=== PATIENT | female | born 1980 | race Caucasian/White ===

== ENCOUNTER 2016-04-20 22:40 | Emergency (ER) | payer MEDICAID, OTHER ==
[~2016-04-20] VITALS: Ht 172.7 cm; Wt 60.8 kg
[2016-04-20] MEDS ORDERED: IV NS 0.9% 1,000 ML BAG IV ONE (23:00)
[2016-04-20] MEDS ORDERED: IV SET PRIMARY 1 EA INFUS.SET MC ONE (23:03)
[2016-04-20] MEDS ORDERED: IV NS 0.9% 1,000 ML ONE (23:03)
[2016-04-20 23:08] LABS: BASOPHILS # (AUTO) 0.1 /CMM (0.0-0.2); BASOPHILS % (AUTO) 0.6 % (0.0-2.0); DIFF TOTAL % 100 %; EOSINOPHILS # (AUTO) 0.3 /CMM (0.0-0.7); EOSINOPHILS % (AUTO) 2.3 % (0.0-6.0); HEMATOCRIT 38 % (33-45); HEMOGLOBIN 13.1 g/dL (11.5-14.8); LYMPHOCYTES # (AUTO) 2.9 /CMM (0.8-4.8); LYMPHOCYTES % (AUTO) 19.6 % (20.0-44.0); MEAN CORPUSCULAR HEMOGLOBIN 31 PG (26.0-33.0); MEAN CORPUSCULAR HGB CONC 34 g/dl (31.0-36.0); MEAN CORPUSCULAR VOLUME 90 fL (82-100); MONOCYTES # (AUTO) 0.7 /CMM (0.1-1.30); MONOCYTES % (AUTO) 4.4 % (2.0-12.0); NEUTROPHILS % (AUTO) 73.1 % (43.0-81.0); PLATELET COUNT (AUTO) 295 /CMM (150-450); RED BLOOD CELL COUNT(AUTO) 4.24 MIL/uL (4.0-5.2)
[2016-04-20 23:11] LABS: ADD UA MICROSCOPIC NO; KETONES,URINE NEGATIVE (NEGATIVE); LEUKOCYTE ESTERASE ,URINE NEGATIVE (NEGATIVE); PH,URINE 6.5 (5.0-8.0)
[2016-04-20 23:15] LABS: CALCIUM, SERUM 8.6 mg/dL (8.5-10.1); CREATININE 0.6 mg/dL (0.6-1.3); POTASSIUM 3.1 mmol/L (3.5-5.1)
[2016-04-20 23:23] LABS: ALBUMIN 3.8 g/dL (3.4-5.0); BILIRUBIN,DIRECT 0.1 mg/dL (0.0-0.2); BILIRUBIN,TOTAL 0.2 mg/dL (0.2-1.0); INDIRECT BILIRUBIN 0.1 mg/dL (0.0-1.1); TOTAL PROTEIN, SERUM 7.6 g/dL (6.4-8.2)
[2016-04-20] MEDS ORDERED: POTASSIUM CHLORIDE 20 MEQ TAB.PRT.SR PO ONE ×2 (23:30)
[2016-04-21 01:11] VITALS: BP 136/75
== END 2016-04-21 01:12 | disposition home or self-care (01) ==
LOC: ER 22:44
DX: O26.892 Other specified pregnancy related conditions, second trimester (principal); R10.2 Pelvic and perineal pain; F17.200 Nicotine dependence, unspecified, uncomplicated; Z3A.15 15 weeks gestation of pregnancy
CPT/HCPCS: 36415 ×2; 76805; 80048; 80076; 81001; 84702; 85025; 96360; 99285; A4606; J7030; Z7610; 81000-TC

== ENCOUNTER 2016-11-30 00:21 | Emergency (ER) | payer MEDICAID ==
--- NOTE | 2016-11-30 00:42 | NUR ---
PT TOLD THERE WILL BE A WAIT AND PT DECIDED TO LEAVE, PT WEALKED OUT OF THE ER WITH A STEADY GAIT.
== END 2016-11-30 00:42 | disposition left against medical advice (07) ==
LOC: ER 00:35
DX: Z53.21 Procedure and treatment not carried out due to patient leaving prior to being seen by health care provider (principal)

== ENCOUNTER 2018-05-10 18:49 | Emergency (ER) | payer MEDICAID ==
[~2018-05-10] VITALS: Ht 172.7 cm; Wt 61.7 kg
--- NOTE | 2018-05-10 19:00 | NUR ---
BIB SELF W C/O SEVERE LOWER BACK PAIN x 2 DAYS. TO ER BED 12, HOOKED TO MONITOR, AWAITING MD PANDEY
--- NOTE | 2018-05-10 19:01 | NUR ---
[facility]ICKSON MEMBRENO AT BEDSIDE
[2018-05-10 19:22] LABS: APPEARANCE,URINE Clear (CLEAR); BILIRUBIN,URINE Negative (NEGATIVE); BLOOD, URINE Trace-intact Ery/uL (NEGATIVE); COLOR,URINE Yellow (YELLOW); KETONES,URINE Negative (NEGATIVE); LEUKOCYTE ESTERASE ,URINE Trace (NEGATIVE); NITRITE, URINE Negative (NEGATIVE); PH,URINE 6.5 (5.0-8.0); PROTEIN,URINE Negative (NEGATIVE); UGLUCOSE Negative (NEGATIVE); UROBILINOGEN,URINE 0.2 EU/dL (0.2)
[2018-05-10 19:23] LABS: BACTERIA,URINE None seen /HPF (None Seen); RBC,URINE 0-2 /HPF (0-2); SQUAMOUS EPITHELIAL CELL,UR Few /HPF (None Seen); WBC,URINE 0-2 /HPF (0-3)
--- NOTE | 2018-05-10 19:36 | NUR ---
REC'D ENDORSEMENT FROM MARIA LUZ VERDUGO FOR NATHALIE
--- NOTE | 2018-05-10 19:37 | NUR ---
REPORT GIVEN TO ANGIE RN FOR NATHALIE
--- NOTE | 2018-05-10 20:25 | NUR ---
Patient discharged to home in stable condition. Written and verbal after care instructions given. Patient verbalizes understanding of instruction.
[2018-05-10] MEDS ORDERED: ACETAMINOPHEN 325 MG TABLET PO ONE (20:30)
[2018-05-10] MEDS ORDERED: ACETAMINOPHEN 325 MG TABLET ONE (20:32)
[2018-05-10 20:42] VITALS: BP 122/79
== END 2018-05-10 20:25 | disposition home or self-care (01) ==
LOC: ER 18:49
DX: M54.5 Low back pain (principal); A53.9 Syphilis, unspecified; R35.0 Frequency of micturition; F17.200 Nicotine dependence, unspecified, uncomplicated; Z87.440 Personal history of urinary (tract) infections
CPT/HCPCS: 81000-TC; 84703-TC

== ENCOUNTER 2018-11-04 20:06 | Emergency (ER) | payer MEDICAID ==
[~2018-11-04] VITALS: Ht 172.7 cm; Wt 60.8 kg
[2018-11-04 20:14] VITALS: BP 138/86
[2018-11-04 21:05] LABS: APPEARANCE,URINE Clear (CLEAR); BILIRUBIN,URINE Negative (NEGATIVE); BLOOD, URINE Negative Ery/uL (NEGATIVE); COLOR,URINE Yellow (YELLOW); KETONES,URINE Negative (NEGATIVE); LEUKOCYTE ESTERASE ,URINE Negative (NEGATIVE); NITRITE, URINE Negative (NEGATIVE); PH,URINE 6.5 (5.0-8.0); PROTEIN,URINE Negative (NEGATIVE); UGLUCOSE Negative (NEGATIVE); UROBILINOGEN,URINE 0.2 EU/dL (0.2)
== END 2018-11-04 22:15 | disposition home or self-care (01) ==
LOC: ER 20:11
DX: S70.361A Insect bite (nonvenomous), right thigh, initial encounter (principal); J02.8 Acute pharyngitis due to other specified organisms; B97.89 Other viral agents as the cause of diseases classified elsewhere; F17.200 Nicotine dependence, unspecified, uncomplicated; Z98.890 Other specified postprocedural states; W57.XXXA Bitten or stung by nonvenomous insect and other nonvenomous arthropods, initial encounter; Y93.89 Activity, other specified; Y92.89 Other specified places as the place of occurrence of the external cause; Y99.8 Other external cause status
CPT/HCPCS: 81000-TC; 84703-TC

== ENCOUNTER 2019-08-05 18:53 | Emergency (ER) | payer MEDICAID ==
[~2019-08-05] VITALS: Ht 172.7 cm; Wt 57.6 kg
--- NOTE | 2019-08-05 19:10 | NUR ---
PT CAME TO THE ED C/O VAGINAL BLEEDING X 15 DAYS. PT DENIES ANY CLOTS. PT AAOX4, VSS, RESPIRATIONS EVEN AND UNLABORED ON RA W NAD NOTED. PT CONNECTED TO THE RENDERER AND POX. WILL CONTINUE TO MONITOR FOR SAFETY
--- NOTE | 2019-08-05 19:15 | NUR ---
URINE COLLECTED AND SENT TO LAB
--- NOTE | 2019-08-05 19:30 | NUR ---
US AT BEDSIDE
[2019-08-05 19:37] LABS: APPEARANCE,URINE Clear (CLEAR); BILIRUBIN,URINE Negative (NEGATIVE); BLOOD, URINE Large Ery/uL (NEGATIVE); COLOR,URINE Yellow (YELLOW); KETONES,URINE Negative (NEGATIVE); LEUKOCYTE ESTERASE ,URINE Small (NEGATIVE); NITRITE, URINE Negative (NEGATIVE); PROTEIN,URINE Negative (NEGATIVE); UGLUCOSE Negative (NEGATIVE); UROBILINOGEN,URINE 0.2 EU/dL (0.2)
[2019-08-05 19:57] LABS: BASOPHILS # (AUTO) 0.1 /CMM (0.0-0.2); HEMATOCRIT 44 % (33-45); HEMOGLOBIN 14.4 g/dL (11.5-14.8); LYMPHOCYTES # (AUTO) 1.8 /CMM (0.8-4.8); LYMPHOCYTES % (AUTO) 23.6 % (20.0-44.0); MEAN CORPUSCULAR HGB CONC 33 g/dl (31.0-36.0); MEAN CORPUSCULAR VOLUME 90 fL (82-100); MONOCYTES # (AUTO) 0.4 /CMM (0.1-1.30); MONOCYTES % (AUTO) 4.7 % (2.0-12.0); NEUTROPHILS # (AUTO) 5.2 /CMM (1.8-8.9); NEUTROPHILS % (AUTO) 67.7 % (43.0-81.0); PLATELET COUNT (AUTO) 343 /CMM (150-450); RED BLOOD CELL COUNT(AUTO) 4.84 MIL/uL (4.0-5.2); WHITE BLOOD COUNT (AUTO) 7.7 K/uL (4.3-11.0)
[2019-08-05 20:03] LABS: BACTERIA,URINE Few /HPF (None Seen); SQUAMOUS EPITHELIAL CELL,UR Few /HPF (None Seen)
[2019-08-05 20:04] LABS: TRICHOMONAS,URINE Few /HPF (None Seen)
[2019-08-05 20:07] LABS: CALCIUM, SERUM 9.4 mg/dL (8.5-10.1); CREATININE 0.7 mg/dL (0.6-1.3); POTASSIUM 3.5 mmol/L (3.5-5.1)
[2019-08-05 20:19] LABS: ALBUMIN 4.7 g/dL (3.4-5.0); BILIRUBIN,DIRECT 0.1 mg/dL (0.0-0.2); BILIRUBIN,TOTAL 0.3 mg/dL (0.2-1.0); TOTAL PROTEIN, SERUM 8.2 g/dL (6.4-8.2)
--- NOTE | 2019-08-05 20:43 | NUR ---
Patient discharged to home in stable condition. Written and verbal after care instructions given. Patient verbalizes understanding of instruction.PT ambulatory with a steady gait
[2019-08-05 20:44] VITALS: BP 127/84
== END 2019-08-05 20:45 | disposition home or self-care (01) ==
LOC: ER 18:58
DX: N92.0 Excessive and frequent menstruation with regular cycle (principal); R55 Syncope and collapse; R42 Dizziness and giddiness; Z98.890 Other specified postprocedural states; Z88.6 Allergy status to analgesic agent
CPT/HCPCS: 36415; 76856-TC; 80048-TC; 80076-TC; 81000-TC; 84702-TC; 85025-TC; 85730-TC; 86850-TC

== ENCOUNTER 2020-05-25 11:09 | Emergency (ER) | payer MEDICAID ==
[~2020-05-25] VITALS: Ht 172.7 cm; Wt 59.0 kg
--- NOTE | 2020-05-25 11:14 | NUR ---
called to triage,not ready
[2020-05-25 11:23] VITALS: BP 129/88
--- NOTE | 2020-05-25 11:31 | NUR ---
THE PATIENT BIBSEFL FOR C/O ON & OFF NECK PAIN X 4 WEEKS,WORSE X 3 DAYS. THE PATIENT IS ALERT AND ORIENTED X4. THE PATIENT RATES NECK PAIN 10/10. DENIES DIZZINESS. DENIES SOB. RESPIRATION REGULAR AND UNLABORED. WARM BLANKET PROVIDED. WILL CONTINUE TO MONITOR.
--- NOTE | 2020-05-25 11:59 | NUR ---
DR LOREDO IS AT THE BEDSIDE
[2020-05-25] MEDS ORDERED: LORAZEPAM INJ 2 MG/ML VIAL ONE (12:23)
[2020-05-25] MEDS ORDERED: LORAZEPAM INJ 2 MG/ML VIAL IM ONE (12:30)
[2020-05-25] MEDS ORDERED: HYDR-4303 PO (13:25)
--- NOTE | 2020-05-25 13:33 | NUR ---
The patient alert and oriented x4. Patient discharged to home in stable condition. Written and verbal after care instructions given. Patient verbalizes understanding of instruction. The patient leaving ER in stable condition.
== END 2020-05-25 13:34 | disposition home or self-care (01) ==
LOC: ER 11:15
DX: M54.6 Pain in thoracic spine (principal); G89.29 Other chronic pain; E07.9 Disorder of thyroid, unspecified; Z98.890 Other specified postprocedural states; Z88.6 Allergy status to analgesic agent
CPT/HCPCS: 96372; 99283; J2060

== ENCOUNTER 2020-07-07 18:32 | Emergency (ER) | payer MEDICAID ==
[~2020-07-07] VITALS: Ht 172.7 cm; Wt 59.0 kg
[~2020-07-07 18:32] MED LIST: HYDR-4303 PO
--- NOTE | 2020-07-07 18:55 | NUR ---
THE PATIENT BIBS FOR C/O PAPULAR SKIN LESIONS,LEFT WRIST,NOTED 2 DAYS AGO,ON ANTI-VIRALS,PCP THOUGHT THEY WERE SHINGLES. DENIES ITCHING AT THE SIDE. WILL CONTINUE TO MONITOR THE PATIENT.
[2020-07-07 19:18] VITALS: BP 146/84
--- NOTE | 2020-07-07 19:18 | NUR ---
The patient alert and oriented x4. Patient discharged to home in stable condition. Written and verbal after care instructions given. Patient verbalizes understanding of instruction.
== END 2020-07-07 19:19 | disposition home or self-care (01) ==
LOC: ER 18:36
DX: B02.9 Zoster without complications (principal); E07.9 Disorder of thyroid, unspecified; F17.200 Nicotine dependence, unspecified, uncomplicated; Z98.890 Other specified postprocedural states; Z88.6 Allergy status to analgesic agent

== ENCOUNTER 2020-07-23 20:05 | Emergency (ER) | payer MEDICAID ==
[~2020-07-23] VITALS: Ht 172.7 cm; Wt 59.0 kg
[2020-07-23 20:40] VITALS: BP 141/81
[2020-07-23] MEDS ORDERED: GABA300C PO (20:57)
[2020-07-23] MEDS ORDERED: VALA500T40 PO (20:57)
== END 2020-07-23 21:14 | disposition home or self-care (01) ==
LOC: ER 20:13
DX: B02.9 Zoster without complications (principal); M54.9 Dorsalgia, unspecified; Z98.890 Other specified postprocedural states; Z88.6 Allergy status to analgesic agent; Z79.899 Other long term (current) drug therapy

== ENCOUNTER 2020-10-21 18:14 | Emergency (ER) | payer MEDICAID ==
[~2020-10-21] VITALS: Ht 172.7 cm; Wt 61.2 kg
[~2020-10-21 18:14] MED LIST changes: +GABA300C PO; +VALA500T40 PO
[2020-10-21 19:00] VITALS: BP 145/89
[2020-10-21] MEDS ORDERED: HYDR-4303 PO (19:26)
[2020-10-21] MEDS ORDERED: AMOX-430 PO (19:26)
== END 2020-10-21 19:36 | disposition home or self-care (01) ==
LOC: ER 18:16
DX: S02.5XXA Fracture of tooth (traumatic), initial encounter for closed fracture (principal); E07.9 Disorder of thyroid, unspecified; F17.200 Nicotine dependence, unspecified, uncomplicated; Z98.890 Other specified postprocedural states; Z88.6 Allergy status to analgesic agent; Z79.899 Other long term (current) drug therapy; X58.XXXA Exposure to other specified factors, initial encounter; Y93.89 Activity, other specified; Y92.89 Other specified places as the place of occurrence of the external cause; Y99.8 Other external cause status

== ENCOUNTER 2021-06-01 12:39 | Emergency (ER) | payer MEDICAID ==
[~2021-06-01] VITALS: Ht 172.7 cm; Wt 61.2 kg
[~2021-06-01 12:39] MED LIST changes: +AMOX-430 PO
[2021-06-01 12:51] VITALS: BP 129/80
--- NOTE | 2021-06-01 14:09 | NUR ---
Patient eloped from facility. ER MD notified.
== END 2021-06-01 14:10 | disposition left against medical advice (07) ==
LOC: ER 12:40
DX: Z53.21 Procedure and treatment not carried out due to patient leaving prior to being seen by health care provider (principal)

== ENCOUNTER 2023-02-27 13:28 | Emergency (ER) | payer MEDICAID, OTHER ==
[~2023-02-27] VITALS: Ht 172.7 cm; Wt 74.8 kg
[~2023-02-27 13:28] MED LIST changes: +ONDA4TAB11 PO
[2023-02-27 13:37] VITALS: BP 146/69; TEMP 98.2
[2023-02-27 14:40] VITALS: O2SAT 100
[2023-02-27 14:48] LABS: BASOPHILS # (AUTO) 0.1 K/uL (0.0-0.2); BASOPHILS % (AUTO) 1.5 % (0.0-2.0); EOSINOPHILS # (AUTO) 0.2 K/uL (0.0-0.7); EOSINOPHILS % (AUTO) 2.1 % (0.0-6.0); HEMATOCRIT 36 % (33-45); HEMOGLOBIN 11.4 g/dL (11.5-14.8); LYMPHOCYTES # (AUTO) 1.4 K/uL (0.8-4.8); LYMPHOCYTES % (AUTO) 18.7 % (20.0-44.0); MEAN CORPUSCULAR HEMOGLOBIN 24 PG (26.0-33.0); MEAN CORPUSCULAR HGB CONC 32 g/dl (31.0-36.0); MEAN CORPUSCULAR VOLUME 77 fL (82-100); MONOCYTES # (AUTO) 0.4 K/uL (0.1-1.30); MONOCYTES % (AUTO) 5.8 % (2.0-12.0); NEUTROPHILS # (AUTO) 5.3 K/uL (1.8-8.9); NEUTROPHILS % (AUTO) 71.9 % (43.0-81.0); PLATELET COUNT (AUTO) 329 K/uL (150-450); RED BLOOD CELL COUNT(AUTO) 4.69 MIL/uL (4.0-5.2); RED CELL DISTRIBUTION WIDTH 15.9 % (11.5-15.0); WHITE BLOOD COUNT (AUTO) 7.4 K/uL (4.3-11.0)
[2023-02-27 15:23] LABS: CALCIUM, SERUM 9.1 mg/dL (8.5-10.1); CREATININE 0.7 mg/dL (0.6-1.3); POTASSIUM 3.5 mmol/L (3.5-5.1)
== END 2023-02-27 18:42 | disposition home or self-care (01) ==
LOC: ER 13:38
DX: R53.1 Weakness (principal); R21 Rash and other nonspecific skin eruption; E03.9 Hypothyroidism, unspecified; F17.200 Nicotine dependence, unspecified, uncomplicated; Z88.6 Allergy status to analgesic agent; Z20.822 Contact with and (suspected) exposure to COVID-19
CPT/HCPCS: 99283; 87426; 87804 ×2; 85025; 80048; 36415; 87880; C9803; 86403-TC

== ENCOUNTER 2023-08-17 21:02 | Emergency (ER) | payer OTHER ==
[~2023-08-17] VITALS: Ht 172.7 cm; Wt 74.8 kg
[2023-08-17 21:54] LABS: APPEARANCE,URINE CLEAR (CLEAR); BILIRUBIN,URINE NEGATIVE (NEGATIVE); BLOOD, URINE 3+ Ery/uL (NEGATIVE); KETONES,URINE NEGATIVE (NEGATIVE); LEUKOCYTE ESTERASE ,URINE TRACE (NEGATIVE); NITRITE, URINE POSITIVE (NEGATIVE); PH,URINE 7.5 (5.0-8.0); PROTEIN,URINE 2+ mg/dl (NEGATIVE); UGLUCOSE NEGATIVE (NEGATIVE); UROBILINOGEN,URINE 0.2 EU/dL (0.2)
[2023-08-17 21:56] LABS: BASOPHILS # (AUTO) 0.1 K/uL (0.0-0.2); BASOPHILS % (AUTO) 1.4 % (0.0-2.0); EOSINOPHILS # (AUTO) 0.2 K/uL (0.0-0.7); EOSINOPHILS % (AUTO) 2.8 % (0.0-6.0); HEMATOCRIT 35 % (33-45); HEMOGLOBIN 11.3 g/dL (11.5-14.8); LYMPHOCYTES # (AUTO) 1.6 K/uL (0.8-4.8); LYMPHOCYTES % (AUTO) 20.3 % (20.0-44.0); MEAN CORPUSCULAR HEMOGLOBIN 26 PG (26.0-33.0); MEAN CORPUSCULAR HGB CONC 33 g/dl (31.0-36.0); MEAN CORPUSCULAR VOLUME 79 fL (82-100); MONOCYTES # (AUTO) 0.5 K/uL (0.1-1.30); MONOCYTES % (AUTO) 6.4 % (2.0-12.0); NEUTROPHILS # (AUTO) 5.3 K/uL (1.8-8.9); NEUTROPHILS % (AUTO) 69.1 % (43.0-81.0); PLATELET COUNT (AUTO) 309 K/uL (150-450); RED BLOOD CELL COUNT(AUTO) 4.37 MIL/uL (4.0-5.2); RED CELL DISTRIBUTION WIDTH 15.7 % (11.5-15.0); WHITE BLOOD COUNT (AUTO) 7.6 K/uL (4.3-11.0)
[2023-08-17 22:06] LABS: CALCIUM, SERUM 8.9 mg/dL (8.5-10.1); CREATININE 0.7 mg/dL (0.6-1.3); POTASSIUM 3.5 mmol/L (3.5-5.1)
[2023-08-17 22:10] LABS: INR 1.03 (0.91-1.10); PARTIAL THROMBOPLASTIN TIME 28.9 SEC (24.3-34.3); PROTHROMBIN TIME 10.9 SECS (9.2-11.1)
[2023-08-17 22:14] LABS: ALBUMIN 3.6 g/dL (3.4-5.0); BILIRUBIN,DIRECT 0.1 mg/dL (0.0-0.2); BILIRUBIN,TOTAL 0.3 mg/dL (0.2-1.0); TOTAL PROTEIN, SERUM 7.3 g/dL (6.4-8.2)
[2023-08-17 22:27] LABS: COLOR,URINE RED (YELLOW); RBC,URINE TOO NUMEROUS TO COUN /HPF (0-2)
[2023-08-17 22:28] LABS: ADD URINE CULTURE YES; BACTERIA,URINE 1+ /HPF (None Seen)
[2023-08-17] MEDS ORDERED: NITROFURANTOIN/MONOHYDRATE MACROCRYSTALS 100 MG CAPSULE ONE (22:51)
[2023-08-17] MEDS: NITROFURANTOIN/MONOHYDRATE MACROCRYSTALS 100 MG CAPSULE PO ONE (22:53)
[2023-08-17] MEDS ORDERED: NITR100C6 PO (22:58)
[2023-08-17 23:10] VITALS: BP 138/74; TEMP 98.8; O2SAT 100
[2023-08-18 07:30] LABS: PREGNANCY TEST URINE QUAL NEGATIVE (NEGATIVE)
== END 2023-08-17 23:10 | disposition home or self-care (01) ==
LOC: ER 21:04
DX: N93.8 Other specified abnormal uterine and vaginal bleeding (principal); N39.0 Urinary tract infection, site not specified; R42 Dizziness and giddiness; Z88.8 Allergy status to other drugs, medicaments and biological substances; F17.200 Nicotine dependence, unspecified, uncomplicated
CPT/HCPCS: 36415; 76856-TC; 80048-TC; 80076-TC; 81001; 84703-TC; 85025-TC; 85730-TC; 87086-TC